=== PATIENT | female | born 1990 | race Asian ===

== ENCOUNTER 2018-08-09 20:20 | Emergency (ER) | payer BC ==
[~2018-08-09] VITALS: Ht 167.6 cm; Wt 57.3 kg
[2018-08-09 20:38] VITALS: BP 104/68
[2018-08-09] MEDS ORDERED: IBUPROFEN 200 MG TABLET ONE (20:58)
--- NOTE | 2018-08-09 20:59 | NUR ---
PT STATES HER PAIN IS "4/10" AND DENIES NEED FOR PAIN MEDICATION, PT AWARE TO NOTIFY RN IF SHE DEVELOPS PAIN.
[2018-08-09] MEDS ORDERED: IBUPROFEN 200 MG TABLET PO ONE (21:00)
--- NOTE | 2018-08-09 21:33 | NUR ---
EDT AT BEDSIDE FOR BISHOP WRAP AND CRUTCHES.
--- NOTE | 2018-08-09 21:54 | NUR ---
Patient/Caregiver given discharge instructions and they have confirmed that they understand the instructions. Patient ambulatory with crutches, wheeled to d/c area for pt comfort.
== END 2018-08-09 21:56 | disposition home or self-care (01) ==
LOC: ED 21:50
DX: S83.91XA Sprain of unspecified site of right knee, initial encounter (principal); X50.1XXA Overexertion from prolonged static or awkward postures, initial encounter; Y93.89 Activity, other specified; Y92.328 Other athletic field as the place of occurrence of the external cause; Y99.8 Other external cause status
CPT/HCPCS: 99283